=== PATIENT | female | born 1970 | race Caucasian/White ===

== ENCOUNTER → 2024-04-08 08:32 | Outpatient (REF) | payer BC, SELFPAY | LOC: WDC 08:32 | PROVIDERS: ATTENDING PHYSICIAN Physician Assistant Medical | DX: Z12.31 Encounter for screening mammogram for malignant neoplasm of breast (principal) | CPT/HCPCS: 77063; 77067 ==

== ENCOUNTER → 2025-02-17 15:13 | Outpatient (REF) | payer BC, SELFPAY | LOC: RAD 15:13 | PROVIDERS: ATTENDING PHYSICIAN Otolaryngology; FAMILY PHYSICIAN Physician Assistant Medical | DX: H90.A31 Mixed conductive and sensorineural hearing loss, unilateral, right ear with restricted hearing on the contralateral side (principal) | CPT/HCPCS: 70480 ==

== ENCOUNTER → 2025-07-06 07:39 | Outpatient (REF) | payer BC, SELFPAY | LOC: WDC 07:39 | PROVIDERS: ATTENDING PHYSICIAN Obstetrics & Gynecology Gynecology; FAMILY PHYSICIAN Physician Assistant Medical | DX: Z12.31 Encounter for screening mammogram for malignant neoplasm of breast (principal) | CPT/HCPCS: 77063; 77067 ==